=== PATIENT | female | born 1985 | race Two or more races ===

== ENCOUNTER → 2021-05-11 | Day surgery (SDC) | payer MEDICAID ==
[2021-05-08 11:03] LABS: Urine WBC None Seen /hpf (0 - 5)
[2021-05-08 11:07] LABS: Basophils # (auto) 0.1 10 ^3/uL (0-0.2); Eosinophils # (auto) 0.1 10 ^3/uL (0-0.8); Eosinophils % (auto) 1.1 % (0.0-7.0); Hematocrit 41.8 % (36.0-46.0); Hemoglobin 13.9 g/dL (12.2-16.2); Lymphocytes # (auto) 1.3 10 ^3/uL (0.4-5.4); Lymphocytes % (auto) 20.3 % (10.0-50.0); Mean Corpuscular Hemoglobin 32.6 pg (28.0-32.0); Mean Corpuscular Hgb Conc. 33.2 g/dL (32.0-36.0); Mean Corpuscular Volume 98.1 fL (80.0-100.0); Monocytes # (auto) 0.3 10 ^3/uL (0-1.3); Monocytes % (auto) 4.6 % (0.0-12.0); Neutrophils # (auto) 4.6 10 ^3/uL (1.6-8.6); Nucleated Red Blood Cells % 0.1 %; Red Blood Cells 4.26 10^6/uL (4.0-5.20); White Blood Cell 6.2 10^3/uL (4.4-10.8)
[2021-05-08 11:18] LABS: Urine Bacteria NONE SEEN /hpf (None Seen); Urine Blood Negative /uL (Negative); Urine Specific Gravity 1.023 (1.001-1.035)
[2021-05-08 11:26] LABS: INR 1.02 (0.9-1.15); Partial Thromboplastin Time 29.7 sec (23.6-33.0)
[2021-05-08 11:58] LABS: Potassium 4.6 mmol/L (3.5-5.1)
[2021-05-08 12:05] LABS: BUN/Creatinine Ratio 18.4; Bilirubin, Total 0.6 mg/dL (0.2-1.0); Total Protein 7.1 g/dL (6.4-8.2)
[~2021-05-11] VITALS: Ht 160 cm; Wt 53.1 kg
[~2021-05-11] MED LIST: BUPIVACAINE 0.5% MPF INJ 30ML SDV IJ ONE; HYDROmorphone HCL 2 MG/ML VL IV PRN; LIDOCAINE 1% HCL (LOCAL ANESTH.) INJ 20ML MDV ONE; LIDOCAINE 2% (LOCAL ANESTH.) PF 5ml SDV ONE; MIDAZOLAM HCL 2MG/2ML 2ml VIAL (1mg/ml) ONE; ONDANSETRON HCL 4 MG/2 ML VIAL IV PRN; ONDANSETRON HCL 4 MG/2 ML VIAL ONE; PROPOFOL 10 MG/ML 20 ML IV ONE; ceFAZolin 1GM/50ML 50 ML IV ONE; fentaNYL CITRATE 100 MCG/2 ML VL ONE
[2021-05-11 08:40] VITALS: BP 125/80
== END | disposition home or self-care (01) ==
LOC: SUR 06:18
PROVIDERS: ATTEND Student in an Organized Health Care Education/Training Program
DX: R22.41 Localized swelling, mass and lump, right lower limb (principal); M67.471 Ganglion, right ankle and foot; D36.13 Benign neoplasm of peripheral nerves and autonomic nervous system of lower limb, including hip; Z98.86 Personal history of breast implant removal; Z98.890 Other specified postprocedural states; Z79.899 Other long term (current) drug therapy; Z20.822 Contact with and (suspected) exposure to COVID-19
CPT/HCPCS: 28039; 36415; 80053; 81001; 81025; 84702; 85025; 85610; 85730; 88305; 88342; J0690; J2001; J2250; J2405; J2704; J3010; J3490; U0003